=== PATIENT | female | born 1990 | race Caucasian/White ===

== ENCOUNTER 2017-10-02 21:05 | Emergency (ER) | payer MEDICAID | END 2017-10-02 21:43 | disposition home or self-care (01) | LOC: D.ER 21:05 | DX: K02.9 Dental caries, unspecified (principal); K08.89 Other specified disorders of teeth and supporting structures; F17.200 Nicotine dependence, unspecified, uncomplicated ==

== ENCOUNTER 2017-11-05 12:41 | Emergency (ER) | payer MEDICAID | END 2017-11-05 13:59 | disposition home or self-care (01) | LOC: D.ER 12:41 | DX: J06.9 Acute upper respiratory infection, unspecified (principal); J01.90 Acute sinusitis, unspecified; J20.9 Acute bronchitis, unspecified; F17.200 Nicotine dependence, unspecified, uncomplicated ==

== ENCOUNTER 2017-11-07 04:12 | Emergency (ER) | payer MEDICAID ==
[2017-11-07 04:33] LABS: BASOPHILS 0.1 % (0-2); EOSINOPHILS 1.5 % (0-7); HEMATOCRIT 38.8 % (36.0-48.0); HEMOGLOBIN 13.6 g/dL (12-16); IMMATURE GRANULOCYTES 0.1 % (0-5); LYMPHOCYTES 17.5 % (15-50); MCH 30.8 pg (26.0-34.0); MCHC 35.1 g/dL (31.0-37.0); MCV 87.8 fL (80.0-100.0); MEAN PLATELET VOLUME 9.9 fL (7.4-10.4); NEUTROPHILS 71.8 % (40-80); PLATELET COUNT 253 10x3/uL (130-400); RBC 4.42 10x6/uL (4.00-5.40); RDW 12.6 % (11.5-14.5); WBC 7.5 10x3/uL (4.8-10.8)
[2017-11-07 04:38] LABS: APPEARANCE HAZY (CLEAR); BACTERIA NONE SEEN /hpf (NONE SEEN); BILIRUBIN NEGATIVE (NEGATIVE); COLOR PINK (YELLOW); EPITHELIAL CELLS RARE /hpf (0-5); GLUCOSE NEGATIVE (NEGATIVE); KETONE NEGATIVE (NEGATIVE); NITRITE NEGATIVE (NEGATIVE); PROTEIN 1+ mg/dL (NEGATIVE); SPECIFIC GRAVITY 1.005 (1.005-1.020); UROBILINOGEN NORMAL (NORMAL); WHITE CELLS - URINE RARE /hpf (0-5)
[2017-11-07 04:51] LABS: HCG SERUM NEGATIVE (NEGATIVE)
[2017-11-07 05:09] LABS: ALBUMIN 4.2 g/dL (3.4-5.0); ALKALINE PHOSPHATASE 88 U/L (46-116); ALT (SGPT) 22 U/L (10-68); BILIRUBIN - TOTAL 0.77 mg/dL (0.2-1.3); CALC OSMOLALITY 276 mosm/kg (275-300); CALCIUM 9.7 mg/dL (8.5-10.1); CARBON DIOXIDE 23.4 mmol/L (21.0-32.0); CHLORIDE - SERUM 103 mmol/L (98-107); CREATININE - SERUM 0.7 mg/dL (0.6-1.3); GLUCOSE 126 mg/dL (74-106); POTASSIUM - SERUM 3.2 mmol/L (3.5-5.1); PROTEIN - SERUM 8.2 g/dL (6.4-8.2); SODIUM 139 mmol/L (136-145); UREA NITROGEN 5 mg/dL (7-18); eGFR NON AFRICAN AMERICAN > 90 mL/min (90-120)
== END 2017-11-07 06:13 | disposition home or self-care (01) ==
LOC: D.ER 04:12
PROVIDERS: Emergency Medicine
DX: N23 Unspecified renal colic (principal); N20.1 Calculus of ureter; N13.30 Unspecified hydronephrosis; F17.200 Nicotine dependence, unspecified, uncomplicated

== ENCOUNTER 2017-11-10 13:24 | Emergency (ER) | payer MEDICAID ==
[2017-11-10 14:07] LABS: BASOPHILS 0.3 % (0-2); EOSINOPHILS 1.9 % (0-7); HEMOGLOBIN 12.3 g/dL (12-16); LYMPHOCYTES 36.2 % (15-50); MCH 31.1 pg (26.0-34.0); MCHC 35.1 g/dL (31.0-37.0); MCV 88.4 fL (80.0-100.0); MEAN PLATELET VOLUME 9.8 fL (7.4-10.4); MONOCYTES 9.7 % (2-11); NEUTROPHILS 51.9 % (40-80); PLATELET COUNT 220 10x3/uL (130-400); RBC 3.96 10x6/uL (4.00-5.40); RDW 12.6 % (11.5-14.5); WBC 3.6 10x3/uL (4.8-10.8)
[2017-11-10 14:13] LABS: APPEARANCE HAZY (CLEAR); BILIRUBIN NEGATIVE (NEGATIVE); COLOR YELLOW (YELLOW); GLUCOSE NEGATIVE (NEGATIVE); KETONE NEGATIVE (NEGATIVE); NITRITE NEGATIVE (NEGATIVE); PROTEIN TRACE mg/dL (NEGATIVE); UROBILINOGEN NORMAL (NORMAL)
[2017-11-10 14:16] LABS: BACTERIA FEW /hpf (NONE SEEN); MUCUS >1+ /lpf (NONE SEEN); RED CELLS - URINE >50 /hpf (0-5)
[2017-11-10 14:22] LABS: ALBUMIN 3.4 g/dL (3.4-5.0); ALKALINE PHOSPHATASE 66 U/L (46-116); ALT (SGPT) 19 U/L (10-68); BILIRUBIN - TOTAL 0.34 mg/dL (0.2-1.3); CALC OSMOLALITY 278 mosm/kg (275-300); CALCIUM 8.8 mg/dL (8.5-10.1); CARBON DIOXIDE 27.6 mmol/L (21.0-32.0); CHLORIDE - SERUM 105 mmol/L (98-107); CREATININE - SERUM 0.7 mg/dL (0.6-1.3); GLUCOSE 89 mg/dL (74-106); POTASSIUM - SERUM 3.4 mmol/L (3.5-5.1); PROTEIN - SERUM 6.9 g/dL (6.4-8.2); SODIUM 141 mmol/L (136-145); UREA NITROGEN 10 mg/dL (7-18); eGFR NON AFRICAN AMERICAN > 90 mL/min (90-120)
== END 2017-11-10 15:15 | disposition home or self-care (01) ==
LOC: D.ER 13:24
PROVIDERS: Emergency Medicine
DX: N39.0 Urinary tract infection, site not specified (principal); N23 Unspecified renal colic

== ENCOUNTER 2018-01-20 09:09 | Emergency (ER) | payer SELFPAY | END 2018-01-20 12:03 | disposition home or self-care (01) | LOC: D.ER 09:09 | DX: L02.01 Cutaneous abscess of face (principal) ==

== ENCOUNTER 2018-03-03 03:17 | Emergency (ER) | payer SELFPAY | END 2018-03-03 03:50 | disposition home or self-care (01) | LOC: D.ER 03:17 | DX: S01.90XA Unspecified open wound of unspecified part of head, initial encounter (principal); X58.XXXA Exposure to other specified factors, initial encounter; Y93.9 Activity, unspecified; Y92.019 Unspecified place in single-family (private) house as the place of occurrence of the external cause; F17.200 Nicotine dependence, unspecified, uncomplicated ==

== ENCOUNTER 2018-06-02 21:34 | Emergency (ER) | payer SELFPAY | END 2018-06-02 22:48 | disposition left against medical advice (07) | LOC: D.ER 21:34 | DX: N20.0 Calculus of kidney (principal) ==

== ENCOUNTER 2019-09-30 23:03 | Emergency (ER) | payer MEDICAID ==
[~2019-09-30] VITALS: Ht 162.6 cm; Wt 72.7 kg
[2019-09-30 23:09] VITALS: Ht 162.6 cm; Wt 72.7 kg
[2019-09-30] MEDS ORDERED: ZOLOFT100 MG PO (23:10)
[2019-09-30] MEDS ORDERED: PRENAVITE1 TAB PO (23:10)
[2019-09-30] MEDS ORDERED: ACETAMINOPHEN500 M1 PO (23:11)
[2019-09-30] MEDS ORDERED: AMOXICILLIN500 M1 PO (23:29)
[2019-09-30] MEDS ORDERED: TYLENOL W/CODEI1 TAB PO (23:29)
[2019-09-30 23:43] VITALS: BP 125/78
== END 2019-09-30 23:44 | disposition home or self-care (01) ==
LOC: D.ER 23:03
DX: O99.612 Diseases of the digestive system complicating pregnancy, second trimester (principal); Z3A.27 27 weeks gestation of pregnancy; K04.7 Periapical abscess without sinus; K08.89 Other specified disorders of teeth and supporting structures; Z72.0 Tobacco use